=== PATIENT | female | born 1990 | race Two or more races ===

== ENCOUNTER 2025-02-08 14:54 | Emergency (ER) | payer OTHER ==
[~2025-02-08] VITALS: Ht 160 cm; Wt 74.8 kg
[2025-02-08 15:32] LABS: LEUKOCYTE ESTERASE ,URINE NEGATIVE (NEGATIVE); PROTEIN,URINE DIPSTICK 2+ (NEGATIVE)
[2025-02-08 15:33] LABS: URINE UROBILINOGEN 1 mg/dL (0.2 - 1)
[2025-02-08 15:44] LABS: WBC,URINE (MAN) 0-5 /HPF (0-5)
[2025-02-08 15:50] LABS: PREGNANCY TEST, URINE NEGATIVE (NEGATIVE)
[2025-02-08] MEDS ORDERED: METOCLOPRAMIDE HCL 10 MG/2ML VIAL IV STA (15:59)
[2025-02-08 17:20] LABS: BASOPHILS % 0.4 % (0.0-1.0); EOSINOPHILS % 2.6 % (0.0-6.0); LYMPHOCYTES % 51.2 % (18.0-39.1); MONOCYTES % 3.6 % (4.4-11.3); NEUTROPHILS % 42.0 % (38.7-80.0); RED CELL DISTRIBUTION WIDTH 12.8 % (11.7-14.4)
[2025-02-08 17:38] LABS: EST GLOMERULAR FILTRATION RATE 119.0 ML/MIN (>=60)
[2025-02-08 18:29] VITALS: PULSE 71; RESP 18; TEMP 98.3
[2025-02-08 18:30] VITALS: BP 111/55; PULSE 71; RESP 18; O2SAT 100
== END 2025-02-08 18:34 | disposition home or self-care (01) ==
LOC: ER 15:05
DX: N93.8 Other specified abnormal uterine and vaginal bleeding (principal)
CPT/HCPCS: 36415; 76856; 80053; 81001; 81025; 85025; 93976; 99284